=== PATIENT | male | born 1955 | race Caucasian/White ===

== ENCOUNTER 2021-05-14 10:57 | Emergency (ER) | payer OTHER ==
[~2021-05-14] VITALS: Ht 182.9 cm; Wt 77.3 kg
[2021-05-14] MEDS ORDERED: ONDANSETRON ODT 4 MG TAB.RAPDIS PO ONE (11:30)
[2021-05-14] MEDS ORDERED: ONDANSETRON ODT 4 MG TAB.RAPDIS ONE (11:32)
--- NOTE | 2021-05-14 11:46 | PHYS DOC ---
Past History Additional Past Medical Histor: bladder cancer- tumor removal- chemo Past Surgical History: Other Additional Past Surgical Histo: bunion Alcohol Use: Occasionally General Adult EDM: Chief Complaint: DIARRHEA HPI: HPI: Patient is a 65-year-old male coming in for his third day of GI complaints. Patient states initially had some nausea and vomiting 3 days ago, and then 2 days ago started having watery diarrhea. He denies any mucus or blood in his stools. Patient states he has a little bit of nausea but is now tolerate fluids and had Gatorade's morning. Patient has no normal urine output. States has had 4-5 episodes of diarrhea today and has taken some Imodium. States the Imodium seems to be helping as he has not had any more diarrhea. Denies any recent travel, sick contacts, food allergies, or antibiotic use. States she has had occasional mild abdominal pain that moves around. No pain currently. No fevers. Has had his Covid vaccine. Review of Systems: Review of Systems: All other systems within normal limits except for as noted in the HPI Current Medications: Current Meds: Current Medications Medications (Trade) Dose Ordered Sig/Kahlil Start Time Stop Time Status Last Admin Dose Admin Ondansetron HCl (Zofran Odt) 4 mg 1X ONCE 05/14/21 11:30 05/14/21 11:31 UNV 05/14/21 11:35 4 MG Physical Exam: PE: Constitutional: Well developed, well nourished, no acute distress, non-toxic appearance. [] HENT: Normocephalic, atraumatic, bilateral external ears normal, nose normal. [] Eyes: PERRLA, conjunctiva normal, no discharge. [] Neck: No rigidity, supple, no stridor. [] Cardiovascular: Regular rate and rhythm, brisk cap refill [] Lungs & Thorax: Non labored symmetric respirations, no tachypnea or respiratory distress [] Abdomen: Soft, nondistended. Skin: Warm, dry, no erythema, no rash. [] Back: Unremarkable Extremities: No deformities, range of motion grossly intact, no lower extremity edema [] Neurologic: Alert and oriented X 3, no focal deficits noted. [] Psychologic: Affect normal, judgement normal, mood normal. [] Current Patient Data: Vital Signs: Vital Signs Date Time Temp Pulse Resp B/P (MAP) Pulse Ox O2 Delivery O2 Flow Rate FiO2 05/14/21 11:14 97.7 74 16 119/81 99 Room Air EKG: EKG: [] Radiology/Procedures: Radiology/Procedures: [] Heart Score: C/O Chest Pain: No Risk Factors: Risk Factors: DM, Current or recent (<one month) smoker, HTN, HLP, family history of CAD, obesity. Risk Scores: Score 0 - 3: 2.5% MACE over next 6 weeks - Discharge Home Score 4 - 6: 20.3% MACE over next 6 weeks - Admit for Clinical Observation Score 7 - 10: 72.7% MACE over next 6 weeks - Early Invasive Strategies Course & Med Decision Making: Course & Med Decision Making Orthostatic vital signs unremarkable, tolerating p.o., urine not concentrated nor containing ketones Dragon Disclaimer: Carina Disclaimer: This electronic medical record was generated, in whole or in part, using a voice recognition dictation system. Departure Departure: Impression: Primary Impression: Nausea Additional Impression: Diarrhea Disposition: HOME / SELF CARE / HOMELESS Condition: STABLE Referrals: JUSTINA RUSH (PCP) Patient Instructions: Diet for Diarrhea, Adult Additional Instructions: Take Zofran as needed for nausea and to ensure that you are able to keep your fluid intake adequate. May use Imodium as needed for diarrhea. Recommend [id number] probiotic. Scripts Ondansetron (ONDANSETRON ODT) 4 Mg Tab.rapdis 1 TAB PO PRN Q6-8HRS PRN for NAUSEA, #16 TAB Prov: EMBER CHURCH MD 05/14/21 EMBER CHURCH MD May 14, 2021 11:46
[2021-05-14 13:05] LABS: BILIRUBIN,URINE NEG (NEG); CLARITY,URINE CLEAR; COLOR,URINE AMBER; GLUCOSE,URINE NEG (NEG); NITRITE,URINE NEG (NEG); UROBILINOGEN,URINE 0.2 mg/dL (0.2 mg/dL)
[2021-05-14 13:07] LABS: BACTERIA,URINE 0 /HPF (0-FEW); WBC,URINE 0 /HPF (0-4)
[2021-05-14 13:13] VITALS: BP 125/75
[2021-05-14] MEDS ORDERED: ONDA4TAB12 PO (13:30)
== END 2021-05-14 13:38 | disposition home or self-care (01) ==
LOC: ER 10:57
DX: R19.7 Diarrhea, unspecified (principal); R11.2 Nausea with vomiting, unspecified
CPT/HCPCS: 81001; 99283; Q0162